=== PATIENT | female | born 1990 | race Caucasian/White ===

== ENCOUNTER 2020-06-20 09:07 | Emergency (ER) | payer BC | END 2020-06-20 10:59 | disposition home or self-care (01) | LOC: CSHERS 09:07 | DX: S09.90XA Unspecified injury of head, initial encounter (principal); W22.8XXA Striking against or struck by other objects, initial encounter | CPT/HCPCS: 70450 ==

== ENCOUNTER 2021-12-09 12:30 | Outpatient (CLI) | payer BC ==
[2021-12-09] MEDS ORDERED: Magnevist 469MG/ML 20 ML VIAL ONE (15:22)
== END 2021-12-09 12:31 | disposition home or self-care (01) ==
LOC: CSHMRI 12:30
PROVIDERS: ATTEND Internal Medicine Endocrinology, Diabetes & Metabolism
DX: E23.6 Other disorders of pituitary gland (principal); D35.2 Benign neoplasm of pituitary gland
CPT/HCPCS: 70553

== ENCOUNTER 2022-03-21 17:57 | Emergency (ER) | payer BC ==
[2022-03-21] MEDS ORDERED: Ketorolac Tromethamine 30 MG/ML VIAL ONE (18:56)
[2022-03-21] MEDS ORDERED: Ondansetron PF 4 MG/2 ML Vial ONE (18:56)
[2022-03-21 19:13] LABS: #Basophils 0.1 10x3/uL (0.0-0.2); #Eosinphils 0.3 10x3/uL (0.0-0.5); #Monocytes 0.6 10x3/uL (0.0-1.1); #Neutrophils 4.4 10x3/uL (1.5-8.4); %Basophils 0.7 % (0.0-2.0); %Eosinophils 3.5 % (0.0-6.0); %Lymphocytes 31.3 % (18.0-47.0); %Monocytes 7.4 % (0.0-10.0); Hemoglobin 14.1 g/dL (12.0-15.5); Mean Corpuscular HGB CONC 34.6 g/dL (32.0-36.0); Mean Corpuscular Hemoglobin 30.5 pg (27.0-33.0); Mean Corpuscular Volume 88.1 fl (81.6-98.3); Mean Platelet Volume 10.8 fl (7.4-10.4); Platelet Count 223 10x3/uL (150-450); RBC Distribution Width 12.1 % (11.5-14.5); Red Blood Cell (RBC) Count 4.63 10x6/uL (3.90-5.03); White Blood Cell (WBC) Count 7.7 10x3/uL (3.5-10.5)
[2022-03-21 19:20] LABS: ALT (SGPT) 14 U/L (8-55); AST (SGOT) 18 U/L (5-34); Albumin 4.5 g/dL (3.5-5.0); Alkaline Phosphatase 63 U/L (40-110); Anion Gap 12 mmol/L (10-20); BUN (Urea Nitrogen) 15 mg/dL (7.0-18.7); Bilirubin, Total 0.3 mg/dL (0.2-1.2); Calc. Creatinine Clearance 0 mL/min (70-130); Calcium 9.8 mg/dL (7.8-10.44); Carbon Dioxide 28 mmol/L (22-29); Chloride 103 mmol/L (98-107); Estimated GFR 98; Globulin 2.8 g/dL (2.4-3.5); Glucose 93 mg/dL (70-105); Potassium 3.9 mmol/L (3.5-5.1); Protein, Total 7.3 g/dL (6.0-8.3); Sodium 139 mmol/L (136-145)
[2022-03-21 19:35] LABS: Bilirubin Neg (Negative); Blood, Urine Negative (Negative); Clarity Clear (Clear); Glucose, Urine (Dipstick) Normal (Negative); Ketone, Urine Negative (Negative); Leukocyte Negative (Negative); Nitrite Negative (Negative); Protein, Urine (Dipstick) Negative (Neg-Trace); Urobilinogen Normal mg/dL (Less than 2)
[2022-03-21 19:37] LABS: Pregnancy Test - Urine (BHCG) Negative (Negative); Pregu Control Background? CLEAR/WHITE (CLR/WHITE); Pregu Control Bar Appear? YES (CONTROL BAR)
[2022-03-21] MEDS ORDERED: Morphine 4 MG/ML VIAL ONE (19:48)
== END 2022-03-21 21:16 | disposition home or self-care (01) ==
LOC: CSHERS 17:57
DX: D21.9 Benign neoplasm of connective and other soft tissue, unspecified (principal); N20.0 Calculus of kidney
CPT/HCPCS: 36415; 74176; 76856; 80053; 81003; 81025; 85025; 96374; 96375; J1885; J2270; J2405